=== PATIENT | female | born 1965 | race Caucasian/White ===

== ENCOUNTER 2021-03-13 07:17 | Inpatient (IN) | payer BC, OTHER ==
[2021-03-13] MEDS ORDERED: Morphine 4 MG/ML VIAL ONE (07:48)
[2021-03-13] MEDS ORDERED: Ondansetron PF 4 MG/2 ML Vial ONE ×2 (07:48→10:32)
[2021-03-13 08:47] LABS: #Basophils 0.1 thou/uL (0.0-0.2); #Eosinphils 0.1 thou/uL (0.0-0.7); #Lymphocytes 2.3 thou/uL (1.20-3.40); #Monocytes 1.4 thou/uL (0.11-0.59); #Neutrophils 15.2 thou/uL (1.40-6.50); %Basophils 0.4 % (0.0-1.0); %Eosinophils 0.8 % (0.0-10.0); %Lymphocytes 11.9 % (21.0-51.0); %Monocytes 7.2 % (0.0-10.0); %Neutrophils 79.7 % (42.0-75.0); Hemoglobin 15.5 g/dL (12.0-16.0); Mean Corpuscular HGB CONC 33.4 g/dL (32.0-36.0); Mean Corpuscular Hemoglobin 31.7 pg (27.0-31.0); Mean Corpuscular Volume 94.9 fL (78.0-98.0); Platelet Count 351 thou/uL (130-400); RBC Distribution Width 13.1 % (11.5-14.5)
[2021-03-13 08:48] LABS: ALT (SGPT) 28 U/L (8-55); AST (SGOT) 24 U/L (5-34); Albumin 4.8 g/dL (3.5-5.0); Alkaline Phosphatase 168 U/L (40-110); Anion Gap 17 mmol/L (10-20); BUN (Urea Nitrogen) 14 mg/dL (9.8-20.1); Bilirubin, Total 0.5 mg/dL (0.2-1.2); Calc. Creatinine Clearance 0 mL/min (70-130); Calcium 10.1 mg/dL (7.8-10.44); Carbon Dioxide 22 mmol/L (22-29); Chloride 102 mmol/L (98-107); Globulin 3.2 g/dL (2.4-3.5); Glucose 111 mg/dL (70-105); Lipase 25 U/L (8-78); Potassium 3.6 mmol/L (3.5-5.1); Sodium 137 mmol/L (136-145)
[2021-03-13 09:58] LABS: Bilirubin Negative (Negative); Blood, Urine Negative (Negative); Clarity Clear (Clear); Glucose, Urine (Dipstick) Normal (Negative); Ketone, Urine Negative (Negative); Leukocyte Negative Leu/uL (Negative); Nitrite Negative (Negative); Protein, Urine (Dipstick) 20 mg/dL (Neg-Trace); Specific Gravity, Urine 1.015 (1.002-1.036); Urobilinogen Normal mg/dL (Less than 2)
[2021-03-13] MEDS ORDERED: Fentanyl 100 MCG/2 ML VIAL ONE ×2 (10:32→12:28)
[2021-03-13] MEDS ORDERED: Pantoprazole 40 MG VIAL ONE (11:26)
[2021-03-13] MEDS ORDERED: metroNIDAZOLE 500 MG/100 ML BAG ONE (11:27)
[2021-03-13] MEDS ORDERED: Lidocaine Viscous Sol 2% 15 ml UD Cup ONE (12:28)
[2021-03-13] MEDS ORDERED: Mag-Al 1200 mg/1200 mg/30 ML UDCUP ONE (12:28)
[2021-03-13] MEDS ORDERED: Promethazine HCl 25 MG in Sodium Chloride 0.9% 50 ML IVPB PRN (12:34)
[2021-03-13] MEDS ORDERED: Morphine 2 MG/ML VIAL SLOW IVP PRN (13:46)
[2021-03-13] MEDS ORDERED: Acetaminophen 325 MG TAB PO PRN (13:46)
[2021-03-13] MEDS ORDERED: Acetaminophen 650 MG Suppository PR PRN (13:46)
[2021-03-13] MEDS: hydrALAZINE 20 MG/ML VIAL SLOW IVP PRN ×2 (13:58→21:21)
[2021-03-13] MEDS ORDERED: metroNIDAZOLE 500 MG in Premix Bag 1 BAG IVPB SCH (14:00)
[2021-03-13] MEDS: Sodium Chloride 0.9% 1,000 ML IV SCH (14:04)
[2021-03-13 14:40] VITALS: BMI 26.4
[2021-03-13 14:55] LABS: Lactic Acid 2.9 mmol/L (0.5-2.2)
[2021-03-13 15:05] LABS: Troponin I 0.029 ng/mL (< 0.028)
[2021-03-13] MEDS ORDERED: Iopamidol-370 76% 500 ML 1 ML ONE (15:18)
[2021-03-13] MEDS: HYDROcodone/Acetaminophen 5/325 mg Tablet PO PRN ×2 (16:55→21:43)
[2021-03-13] MEDS: Morphine 2 MG/ML VIAL SLOW IVP PRN ×3 (16:59→22:41)
[2021-03-13 17:00] LABS: Troponin I 0.044 ng/mL (< 0.028)
[2021-03-13] MEDS ORDERED: GoLYTELY 4,000 ml Bottle PO SCH (18:00)
[2021-03-13] MEDS: SUMAtriptan Succinate 50 MG TAB PO PRN (21:22)
[2021-03-13] MEDS: metroNIDAZOLE 500 MG in Premix Bag 1 BAG IVPB SCH (21:23)
[2021-03-13] MEDS: Ondansetron PF 4 MG/2 ML Vial IVP PRN (21:26)
[2021-03-13 23:19] LABS: SARS-CoV-2 PCR by NAA Not Detected (NotDetected)
[2021-03-14] MEDS: Sodium Chloride 0.9% 1,000 ML IV SCH ×3 (00:49→21:30)
[2021-03-14] MEDS: Morphine 2 MG/ML VIAL SLOW IVP PRN ×5 (02:09→21:23)
[2021-03-14] MEDS: metroNIDAZOLE 500 MG in Premix Bag 1 BAG IVPB SCH ×3 (04:12→21:30)
[2021-03-14] MEDS: HYDROcodone/Acetaminophen 5/325 mg Tablet PO PRN ×4 (04:12→22:26)
[2021-03-14 05:23] LABS: #Lymphocytes 2.9 thou/uL (1.20-3.40); #Monocytes 1.4 thou/uL (0.11-0.59); %Basophils 0.2 % (0.0-1.0); %Eosinophils 0.2 % (0.0-10.0); %Monocytes 7.4 % (0.0-10.0); %Neutrophils 77.2 % (42.0-75.0); Hemoglobin 15.1 g/dL (12.0-16.0); Mean Corpuscular HGB CONC 33.4 g/dL (32.0-36.0); Mean Corpuscular Hemoglobin 31.7 pg (27.0-31.0); Mean Corpuscular Volume 95.2 fL (78.0-98.0); Mean Platelet Volume 7.9 fL (7.4-10.4); Platelet Count 367 thou/uL (130-400); RBC Distribution Width 13.2 % (11.5-14.5); Red Blood Cell (RBC) Count 4.75 mill/uL (4.20-5.40); White Blood Cell (WBC) Count 19.4 thou/uL (4.8-10.8)
[2021-03-14 05:55] LABS: Anion Gap 16 mmol/L (10-20); BUN (Urea Nitrogen) 9 mg/dL (9.8-20.1); Calc. Creatinine Clearance 101 mL/min (70-130); Calcium 9.5 mg/dL (7.8-10.44); Carbon Dioxide 23 mmol/L (22-29); Chloride 100 mmol/L (98-107); Glucose 129 mg/dL (70-105); Potassium 3.5 mmol/L (3.5-5.1); Sodium 135 mmol/L (136-145)
[2021-03-14] MEDS: Enoxaparin Sodium 40 MG/0.4 ML SYRINGE SC SCH (09:27)
[2021-03-14] MEDS ORDERED: SUMAtriptan Succinate 6 MG/0.5 ML VIAL SC SCH (10:00)
[2021-03-14] MEDS: Ondansetron PF 4 MG/2 ML Vial IVP PRN (12:39)
[2021-03-14] MEDS: hydrALAZINE 20 MG/ML VIAL SLOW IVP PRN (15:16)
[2021-03-15] MEDS: Sodium Chloride 0.9% 1,000 ML IV SCH ×2 (01:23→17:22)
[2021-03-15] MEDS: Morphine 2 MG/ML VIAL SLOW IVP PRN ×4 (01:24→21:08)
[2021-03-15] MEDS: HYDROcodone/Acetaminophen 5/325 mg Tablet PO PRN (02:49)
[2021-03-15] MEDS: metroNIDAZOLE 500 MG in Premix Bag 1 BAG IVPB SCH ×2 (04:36→19:20)
[2021-03-15] MEDS: SUMAtriptan Succinate 50 MG TAB PO PRN ×2 (05:01→09:47)
[2021-03-15] MEDS: Ondansetron PF 4 MG/2 ML Vial IVP PRN ×2 (07:33→18:19)
[2021-03-15] MEDS: Enoxaparin Sodium 40 MG/0.4 ML SYRINGE SC SCH (09:36)
[2021-03-15] MEDS ORDERED: Promethazine HCl 25 MG/ML VIAL IM PRN (13:29)
[2021-03-15] MEDS ORDERED: Ondansetron HCl/PF 4 MG/2 ML Vial IVP PRN (13:29)
[2021-03-15] MEDS ORDERED: Promethazine HCl 25 MG/ML VIAL IVPB PRN (13:29)
[2021-03-15] MEDS ORDERED: Lidocaine 1% PF 5 ML VIAL ONE (13:44)
[2021-03-15] MEDS ORDERED: PROPOFOL 200 MG/20 ML VIAL ONE (13:44)
[2021-03-15] MEDS ORDERED: Fentanyl 100 MCG/2 ML VIAL ONE (14:29)
[2021-03-15] MEDS ORDERED: Ondansetron PF 4 MG/2 ML Vial ONE (14:35)
[2021-03-15] MEDS: hydrALAZINE 20 MG/ML VIAL SLOW IVP PRN (15:35)
[2021-03-15 16:20] LABS: #Eosinphils 0.1 thou/uL (0.0-0.7); #Lymphocytes 3.3 thou/uL (1.20-3.40); #Monocytes 1.2 thou/uL (0.11-0.59); #Neutrophils 11.8 thou/uL (1.40-6.50); %Basophils 0.2 % (0.0-1.0); %Eosinophils 0.5 % (0.0-10.0); %Lymphocytes 19.9 % (21.0-51.0); %Monocytes 7.4 % (0.0-10.0); Hemoglobin 16.8 g/dL (12.0-16.0); Mean Corpuscular HGB CONC 33.5 g/dL (32.0-36.0); Mean Corpuscular Hemoglobin 32.3 pg (27.0-31.0); Mean Corpuscular Volume 96.3 fL (78.0-98.0); Mean Platelet Volume 7.5 fL (7.4-10.4); Platelet Count 298 thou/uL (130-400); RBC Distribution Width 13.2 % (11.5-14.5); Red Blood Cell (RBC) Count 5.21 mill/uL (4.20-5.40); White Blood Cell (WBC) Count 16.4 thou/uL (4.8-10.8)
[2021-03-15] MEDS ORDERED: Rizatriptan Benzoate 10 MG MLT TAB PO PRN (16:31)
[2021-03-15 16:40] LABS: Anion Gap 20 mmol/L (10-20); BUN (Urea Nitrogen) 10 mg/dL (9.8-20.1); Calc. Creatinine Clearance 103 mL/min (70-130); Calcium 9.8 mg/dL (7.8-10.44); Carbon Dioxide 19 mmol/L (22-29); Chloride 103 mmol/L (98-107); Glucose 102 mg/dL (70-105); Potassium 3.5 mmol/L (3.5-5.1); Sodium 138 mmol/L (136-145)
[2021-03-15] MEDS: HYDROcodone/Acetaminophen 10/325 mg Tablet PO PRN (18:19)
[2021-03-15] MEDS ORDERED: Amitriptyline HCl 25 MG TAB PO SCH (21:00)
[2021-03-16] MEDS: tiZANidine HCl 4 MG TAB PO SCH ×2 (00:02→09:21)
[2021-03-16] MEDS: metroNIDAZOLE 500 MG in Premix Bag 1 BAG IVPB SCH (00:59)
[2021-03-16] MEDS: HYDROcodone/Acetaminophen 10/325 mg Tablet PO PRN (05:50)
[2021-03-16] MEDS ORDERED: HYDROcodone/Acetaminophen 10/325 mg Tablet PO PRN (06:45)
[2021-03-16 07:48] LABS: #Eosinphils 0.1 thou/uL (0.0-0.7); #Lymphocytes 2.5 thou/uL (1.20-3.40); #Monocytes 0.9 thou/uL (0.11-0.59); #Neutrophils 8.9 thou/uL (1.40-6.50); %Basophils 0.3 % (0.0-1.0); %Eosinophils 0.5 % (0.0-10.0); %Lymphocytes 20.3 % (21.0-51.0); %Monocytes 7.5 % (0.0-10.0); %Neutrophils 71.4 % (42.0-75.0); Hemoglobin 14.9 g/dL (12.0-16.0); Mean Corpuscular HGB CONC 32.9 g/dL (32.0-36.0); Mean Corpuscular Hemoglobin 31.8 pg (27.0-31.0); Mean Corpuscular Volume 96.6 fL (78.0-98.0); Platelet Count 287 thou/uL (130-400); RBC Distribution Width 13.2 % (11.5-14.5); Red Blood Cell (RBC) Count 4.68 mill/uL (4.20-5.40); White Blood Cell (WBC) Count 12.4 thou/uL (4.8-10.8)
[2021-03-16 07:51] LABS: Anion Gap 13 mmol/L (10-20); BUN (Urea Nitrogen) 15 mg/dL (9.8-20.1); Calc. Creatinine Clearance 75 mL/min (70-130); Calcium 9.2 mg/dL (7.8-10.44); Carbon Dioxide 25 mmol/L (22-29); Chloride 101 mmol/L (98-107); Glucose 123 mg/dL (70-105); Potassium 3.3 mmol/L (3.5-5.1); Sodium 136 mmol/L (136-145)
[2021-03-16 08:01] VITALS: BP 144/89; TEMP 97.8
[2021-03-16] MEDS ORDERED: metroNIDAZOLE 500 MG in Premix Bag 1 BAG IVPB SCH (09:00)
[2021-03-16] MEDS ORDERED: Lisinopril 20 MG TAB PO SCH (09:00)
[2021-03-16] MEDS ORDERED: Potassium Chloride 20 MEQ TAB PO SCH (10:30)
[2021-03-16] MEDS: HYDROcodone/Acetaminophen 5/325 mg Tablet PO PRN (10:41)
[2021-03-16] MEDS: Enoxaparin Sodium 40 MG/0.4 ML SYRINGE SC SCH (11:25)
== END 2021-03-16 15:24 | disposition home or self-care (01) | DRG 394 ==
LOC: ERS 07:17 → 2NO 12:04 → T4-B 03-15 15:48 → OBSVTOIN 03-15 17:41
PROVIDERS: ADMIT Internal Medicine; ATTEND Internal Medicine
PROC: 0DBM8ZX Excision of Descending Colon, Via Natural or Artificial Opening Endoscopic, Diagnostic (ICD-10-PCS; principal; 2021-03-15)
DX: K55.9 Vascular disorder of intestine, unspecified (principal); F11.20 Opioid dependence, uncomplicated; K63.3 Ulcer of intestine; I16.0 Hypertensive urgency; I77.1 Stricture of artery; R51.9 Headache, unspecified
CPT/HCPCS: 36415; 71275; 74174; 80048; 80053; 81003; 83605; 83690; 84484; 85025; 85652; 86140; 87040; 87045; 87046; 87081; 87324; 87427; 87449; 88305; 96366; 96367; 96372; 96375; 96376; C9113; G0378; J0360; J0744; J1650; J2270; J2405; J2550; J2704; J3010; J3030; J7050; Q9967; U0003; U0005

== ENCOUNTER 2021-10-07 12:49 | Outpatient (CLI) | payer OTHER | END 2021-10-07 12:50 | disposition home or self-care (01) | LOC: MRI 12:49 → TBSIIMAG 12:50 | PROVIDERS: ATTEND Family Medicine | DX: M25.561 Pain in right knee (principal); M25.562 Pain in left knee; M17.0 Bilateral primary osteoarthritis of knee; S83.241A Other tear of medial meniscus, current injury, right knee, initial encounter ==

== ENCOUNTER 2023-04-02 13:01 | Emergency (ER) | payer OTHER ==
[2023-04-02] MEDS ORDERED: Ketorolac Tromethamine 30 MG/ML VIAL ONE (14:14)
== END 2023-04-02 15:30 | disposition home or self-care (01) ==
LOC: ERS 13:01
DX: S82.51XA Displaced fracture of medial malleolus of right tibia, initial encounter for closed fracture (principal); S82.431A Displaced oblique fracture of shaft of right fibula, initial encounter for closed fracture; I10 Essential (primary) hypertension; E78.5 Hyperlipidemia, unspecified; Z79.899 Other long term (current) drug therapy; Y93.K9 Activity, other involving animal care; Y92.009 Unspecified place in unspecified non-institutional (private) residence as the place of occurrence of the external cause
CPT/HCPCS: 29515; 96372; J1885